=== PATIENT | female | born 1960 | race Caucasian/White ===

== ENCOUNTER 2017-02-07 13:26 | Emergency (ER) | payer OTHER ==
[2017-02-07] MEDS ORDERED: CATAPRES PO ONE (15:13)
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
[2017-02-07 19:52] VITALS: BP 102/62
[2017-02-07] MEDS ORDERED: MOTRIN PO ONE (19:53)
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
== END 2017-02-07 20:10 | disposition home or self-care (01) ==
LOC: ED 13:26
DX: S16.1XXA Strain of muscle, fascia and tendon at neck level, initial encounter (principal); M47.9 Spondylosis, unspecified; I10 Essential (primary) hypertension; E11.9 Type 2 diabetes mellitus without complications; V49.59XA Passenger injured in collision with other motor vehicles in traffic accident, initial encounter; Y93.9 Activity, unspecified; Y92.9 Unspecified place or not applicable; Y99.9 Unspecified external cause status
CPT/HCPCS: 72040; 72100; 99283